=== PATIENT | female | born 1990 | race Caucasian/White ===

== ENCOUNTER 2017-05-31 16:56 | Emergency (ER) | payer OTHER ==
[2017-05-31 17:07] VITALS: BP 105/72; PULSE 84; RESP 17; TEMP 98.6; O2SAT 97
[2017-05-31 18:36] LABS: PLATELET COUNT 403 10^3/uL (150-400)
[2017-05-31 18:42] LABS: INR 0.93 (0.83-1.16); PROTIME(PATIENT) 12.7 SEC (12.0-15.0)
[2017-05-31] MEDS ORDERED: KETOROLAC 30 MG/1 ML SDV IVP ONE (19:17)
--- NOTE | 2017-05-31 19:17 | EDPHY ---
General Time Seen by Provider: 05/31/17 17:49 Narrative: CHIEF COMPLAINT: Pelvic pain, spotting HISTORY OF PRESENT ILLNESS: Patient complains of 8 days history of pelvic pain. This is bilateral pelvic pain. It is mild to moderate at times, moderate to severe at others. Worse with palpation. No worse with ambulation. No fever. No chills. No urinary complaints. No vaginal discharge. Some vaginal spotting today. Her primary concern is that her IUD is no longer in place. It was placed in March 2016 and has a copper ParaGard. She has some dyspareunia at times. She has a rent control office manager within examination in June. Last menstrual cycle ended 9 days ago. No other associated complaints or modifying factors. REVIEW OF SYSTEMS: Ten systems reviewed and are negative unless otherwise noted in the HPI PCP: None SPECIALISTS: Dr. Webster, rent control office manager PAST MEDICAL HISTORY: Bipolar NOS PAST SURGICAL HISTORY: IUD placement March 2016 SOCIAL HISTORY: Nonsmoker. No drug or alcohol use. 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 Originally from [place] FAMILY HISTORY: Noncontributory EXAMINATION General Appearance: Alert, no distress, anxious Head: normocephalic, atraumatic Eyes: Pupils equal and round, no conjunctival pallor or injection ENT, Mouth: Mucous membranes moist Neck: Normal inspection, supple, non-tender Respiratory: Lungs are clear to auscultation. No wheezing or rhonchi or crackles Cardiovascular: Regular rate and rhythm. No murmur Gastrointestinal: Abdomen is soft and nontender. There is suprapubic and bilateral pelvic tenderness. No guarding. No tympany. No rigidity. No CVA tenderness. Back: non-tender, no bony abnormalities Neurological: A&O, nonfocal, normal gait Skin: Warm and dry, no rash. No petechiae or purpura Extremities: Nontender, no pedal edema Psychiatric: Mood and affect normal DIFFERENTIAL DIAGNOSES: Including but not limited to torsion, ovarian cyst, tubo-ovarian abscess, migration of IUD, uterine perforation, abnormal uterine bleeding, endometriosis MDM: 6:00 p.m. Lower abdominal pelvic pain with concerned by patient for IUD location. Vital signs are within normal limits. Her abdominal exam is benign. I have ordered a pelvic ultrasound to rule out torsion and to evaluate her pain. I have ordered laboratory studies and IV placement. She is in no acute distress. 7:00 p.m. Laboratory studies are all within normal limits with mild leukocytosis. Ultrasound is pending. I have ordered Toradol for pain. 7:20 p.m. Notified by radiologist Dr. Downing. Ultrasound findings reveal no evidence of torsion. There is a right ovarian cyst. IUD is in good placement. Uterus unremarkable. 7:30 p.m. Patient re-evaluated. She is feeling significantly better after the Toradol. I discussed the negative ultrasound findings. I discussed laboratory studies. I did offer CT scan of the abdomen pelvis but the patient has declined. I do feel it is reasonable to withhold scan at this time as she has a benign abdominal examination. High suspicion for endometriosis given the patient's history and confluence of symptoms, particularly the 8 days duration follicular phase of her menstrual cycle. We discussed discharge home with symptomatic medications. We discussed following up with her established rent control office manager. She will contact her in the morning for outpatient follow-up sooner than scheduled. We discussed strict ED precautions for any worsening pain, fever, nausea, constipation. We discussed repeat evaluation in 24 hr if no improvement. She is comfortable this plan and discharged home stable condition. SUPERVISION: Patient was independently examined, but I discussed the case with my primary supervising physician Dr. Schreiber. - History Smoking Status: Never smoked - Objective Vital Signs: Initial Vital Signs Temperature (C) 98.6 F 05/31/17 17:05 Heart Rate 84 05/31/17 17:05 Respiratory Rate 17 05/31/17 17:05 Blood Pressure 105/72 05/31/17 17:05 O2 Sat (%) 97 05/31/17 17:05 O2 Delivery Mode Room Air Allergies/Adverse Reactions: No Known Allergies Allergy (Unverified 05/31/17 17:04) Home Medications: Medication Instructions Recorded LaMICtal 05/31/17 Lexapro 05/31/17 Naproxen [Naprosyn] 500 mg PO BID #20 tablet 05/31/17 oxyCODONE HCL/ACETAMINOPHEN 1 each PO Q4-6PRN PRN #7 tablet 05/31/17 [Percocet 5-325 mg Tablet] Departure - Departure Disposition: Home, Routine, Self-Care Clinical Impression: Acute pelvic pain, female Condition: Good Instructions: Pelvic Pain in Women (ED), Endometriosis (ED) Additional Instructions: 1. Medications as prescribed as needed 2. Contact established rent control office manager for further evaluation 3. Return to ED for worsening pain, fever, nausea, vomiting 4. Return to ED in 24 hr if no improvement or your pain Referrals: Sunday Bean MD [place] [place] - As per Instructions Marzena Ceja MD [Non Staff Provider ()] - As per Instructions Prescriptions: Naproxen [Naprosyn] 500 mg PO BID #20 tablet oxyCODONE HCL/ACETAMINOPHEN [Percocet 5-325 mg Tablet] 1 each PO Q4-6PRN PRN #7 tablet PRN Reason: Pain, Breakthrough
[2017-06-01 13:22] LABS: GC AMPLIFICATION GENPROBE NEGATIVE (NEGATIVE)
== END 2017-05-31 20:09 | disposition home or self-care (01) ==
DX: R10.2 Pelvic and perineal pain (principal)
CPT/HCPCS: 96374; J1885